=== PATIENT | male | born 1980 | race African-American/Black ===

== ENCOUNTER 2024-03-20 10:58 | Emergency (ER) | payer OTHER ==
[~2024-03-20] VITALS: Ht 167.6 cm; Wt 72.1 kg
[2024-03-20 12:20] LABS: BASO % 0.3 % (0.0-1.0); EOS % 0.8 % (0.0-3.0); HEMATOCRIT 43.7 % (42.0-52.0); HEMOGLOBIN 14.3 g/dl (13.5-17.5); LYMPH # 1.5 10^3/uL (1.5-5.0); LYMPH % 39.6 % (24.0-44.0); MEAN CORPUSCULAR HEMOGLOBIN 29.5 pg (27.0-33.0); MEAN CORPUSCULAR HGB CONC 32.7 g/dl (32.0-36.5); MEAN CORPUSCULAR VOLUME 90.3 fl (80.0-96.0); MONO # 0.6 10^3/uL (0.0-0.8); MONO % 15.1 % (2.0-8.0); NEUTROPHILS # 1.7 10^3/uL (1.5-8.5); NEUTROPHILS % 43.9 % (36.0-66.0); PLATELET COUNT, AUTOMATED 286 10^3/uL (150-450); RED BLOOD COUNT 4.84 10^6/uL (4.30-6.10); WHITE BLOOD COUNT 3.8 10^3/uL (4.0-10.0)
[2024-03-20 12:32] LABS: INR 1.07; PARTIAL THROMBOPLASTIN TIME 29.6 SECONDS (24.8-34.2); PROTHROMBIN TIME 13.6 SECONDS (12.5-14.5)
[2024-03-20] MEDS: NS 500 ML IV ONE (12:34)
[2024-03-20 12:44] LABS: ALBUMIN 4.5 G/DL (3.2-5.2); BILIRUBIN,DIRECT 0.2 MG/DL (<0.4); BILIRUBIN,TOTAL 0.9 MG/DL (0.3-1.2); TOTAL PROTEIN 7.5 G/DL (5.7-8.2)
[2024-03-20 16:09] VITALS: BP 138/76
[2024-03-20 16:28] VITALS: TEMP 98.4; O2SAT 99
== END 2024-03-20 17:06 | disposition home or self-care (01) ==
LOC: M ED 10:58
DX: M51.26 Other intervertebral disc displacement, lumbar region (principal); R19.7 Diarrhea, unspecified; M79.7 Fibromyalgia; Z88.0 Allergy status to penicillin

== ENCOUNTER 2025-03-27 07:20 | Emergency (ER) | payer OTHER ==
[~2025-03-27] VITALS: Ht 167.6 cm; Wt 73.7 kg
[2025-03-27 07:22] VITALS: TEMP 96.9
[2025-03-27] MEDS ORDERED: TRAM1CAP15 PO (07:52)
[2025-03-27] MEDS ORDERED: DORZ2SOL5 (07:52)
[2025-03-27] MEDS: ALBUTEROL SULFATE 2.5 MG/0.5 ML INH CONCENTRATE NEB SOLN NEB ONE (09:47)
[2025-03-27 10:13] LABS: BASO # 0.0 10^3/uL (0.0-0.2); BASO % 0.1 % (0.0-1.0); EOS # 0.1 10^3/uL (0.0-0.5); EOS % 1.3 % (0.0-3.0); LYMPH # 1.5 10^3/uL (1.5-5.0); LYMPH % 21.2 % (24.0-44.0); MONO # 0.9 10^3/uL (0.0-0.8); MONO % 13.3 % (2.0-8.0); NEUTROPHILS # 4.4 10^3/uL (1.5-8.5); NEUTROPHILS % 63.8 % (36.0-66.0); PLATELET COUNT, AUTOMATED 246 10^3/uL (150-450)
[2025-03-27 10:43] LABS: ALT/SGPT 44 U/L (7.0-40); AST/SGOT 52 U/L (<34); CALCIUM LEVEL 9.5 MG/DL (8.5-10.1); CARBON DIOXIDE LEVEL 28 MMOL/L (20-31); CHLORIDE LEVEL 107 MMOL/L (98-107); CREATININE FOR GFR 0.84 MG/DL (0.70-1.30); GLOMERULAR FILTRATION RATE > 90.0 (>60); POTASSIUM SERUM 5.8 MMOL/L (3.5-5.1); SODIUM LEVEL 141 MMOL/L (136-145); THYROXINE (T4) 6.6 UG/DL (4.5-10.9)
[2025-03-27] MEDS: IPRATROPIUM 0.5 MG/ALBUTEROL 2.5 MG INH SOL UD 3 ML NEB ONE (11:25)
[2025-03-27] MEDS ORDERED: BENZ200C70 PO (11:40)
[2025-03-27] MEDS ORDERED: VENTAER INH (11:40)
[2025-03-27 12:30] VITALS: O2SAT 98
[2025-03-27 12:47] VITALS: BP 148/84
== END 2025-03-27 12:49 | disposition home or self-care (01) ==
LOC: M ED 10:24
DX: J20.6 Acute bronchitis due to rhinovirus (principal); F17.200 Nicotine dependence, unspecified, uncomplicated; Z88.0 Allergy status to penicillin; Z79.52 Long term (current) use of systemic steroids; Z79.899 Other long term (current) drug therapy